=== PATIENT | female | born 1985 | race Caucasian/White ===

== ENCOUNTER 2020-12-06 19:58 | Emergency (ER) | payer OTHER ==
[~2020-12-06] VITALS: Ht 162.6 cm; Wt 73.9 kg
--- NOTE | 2020-12-06 20:20 | NUR ---
Pt. here for headache for past week with L side facial numbness starting today 3 hrs user acceptance [employer]. Pt. also has generalized weakness, said no changes in speech but some mild blurred vision today that she is not experiencing now. Denies any other symptoms. Aox4, no deficits, nad.
--- NOTE | 2020-12-06 21:23 | NUR ---
pt taken to ct
--- NOTE | 2020-12-06 21:29 | NUR ---
pt returned from ct
--- NOTE | 2020-12-06 21:30 | NUR ---
Pt resting in bed. NAD. VSS. Will continue to monitor.
[2020-12-06] MEDS ORDERED: METOCLOPRAMIDE HCL 10 MG/2 ML VIAL IM ONE (22:15)
--- NOTE | 2020-12-06 22:30 | NUR ---
Pt resting in bed comfortably with eyes closed. NAD. VSS. Will continue to monitor.
[2020-12-06] MEDS ORDERED: METOCLOPRAMIDE HCL 10 MG/2 ML VIAL IV ONE (22:45)
[2020-12-06] MEDS ORDERED: METOCLOPRAMIDE HCL 10 MG/2 ML VIAL ONE (22:47)
--- NOTE | 2020-12-07 00:12 | NUR ---
IV removed. Catheter intact and site benign. Pressure and 4x4 gauze applied to site. No bleeding noted.
--- NOTE | 2020-12-07 00:13 | NUR ---
Patient discharged to home in stable condition. Written and verbal after care instructions given. Patient verbalizes understanding of instructions. Stressed follow up or return to ER for worsening s/s. Patient out of ER with steady gait, no acute signs of distress, VSS, all belongings taken, provided with copies of CT results, IV site discontinued.
[2020-12-07 00:15] VITALS: BP 112/77
== END 2020-12-07 00:16 | disposition home or self-care (01) ==
LOC: ER 20:10
DX: G43.909 Migraine, unspecified, not intractable, without status migrainosus (principal)
CPT/HCPCS: 70450; 96374; 99284; J2765